=== PATIENT | female | born 1955 | race Caucasian/White ===

== ENCOUNTER 2021-11-30 12:41 | Observation (INO) ==
[2021-11-30] MEDS ORDERED: Naloxone 0.4 MG/ML INJ IVP PRN (13:13)
[2021-11-30] MEDS ORDERED: Acetaminophen 325 MG TABLET PO PRN (13:13)
[2021-11-30] MEDS ORDERED: Ondansetron 4 MG/2 ML VIAL IVP PRN (13:13)
[2021-11-30] MEDS: amLODIPine 5 MG TABLET PO SCH (18:04)
[2021-12-01 05:01] LABS: Hematocrit 36.4 % (35.3-44.9); Hemoglobin 12.1 g/dL (11.5-15.4); Mean Corpuscular HGB Conc 33.2 g/dL (31.6-35.5); Mean Corpuscular Hemoglobin 30.6 pg (28.0-33.3); Mean Corpuscular Volume 91.9 fL (83.0-100.0); Mean Platelet Volume 11.5 fL (9.4-12.4); Platelet Count 227 K/mcL (140-400); Red Blood Count 3.96 M/mcL (3.82-4.97); Red Cell Distribution Width 12.3 % (11.5-14.5); White Blood Count 6.1 K/mcL (4.3-11.1)
[2021-12-01 05:20] LABS: BUN/Creatinine Ratio 12 (6-26); Blood Urea Nitrogen 12 mg/dL (8-23); Calcium 9.7 mg/dL (8.6-10.3); Carbon Dioxide 25 mEq/L (23-29); Chloride 107 mEq/L (98-107); Chol/HDL Ratio 3.8 (0-4.9); Cholesterol 211 mg/dL (< 200); Glucose 96 mg/dL (70-105); HDL Cholesterol 55 mg/dL (40-59); LDL Cholesterol,Calculated 132 mg/dL (< 100); Osmolality,Calculated 288 (280-300); Potassium 4.2 mEq/L (3.5-5.1); Sodium 139 mEq/L (136-145); Triglycerides 122 mg/dL (< 150); eGFR For African Americans > 60 (> 60); eGFR For Non-African Americans 55 (> 60)
[2021-12-01] MEDS ORDERED: *HR* Enoxaparin 40 MG/0.4 ML SYRINGE SQ SCH (06:00)
[2021-12-01 06:56] VITALS: O2SAT 95
[2021-12-01] MEDS ORDERED: Perflutren Lipid Microsphere 1.3 ML in 0.9 % Sodium Chloride 8.7 ML IVP PRN (07:26)
[2021-12-01] MEDS: amLODIPine 5 MG TABLET PO SCH (08:12)
[2021-12-01] MEDS ORDERED: Aspirin Enteric Coated 81 MG Tablet PO SCH (09:00)
[2021-12-01 11:45] VITALS: BP 134/75; PULSE 82; RESP 15; TEMP 98.7
== END 2021-12-01 15:10 | disposition home or self-care (01) ==
LOC: INPGRE
PROVIDERS: ADMIT Family Medicine; ATTEND Family Medicine